=== PATIENT | female | born 1965 | race Caucasian/White ===

== ENCOUNTER 2018-01-20 11:05 | Emergency (ER) | payer OTHER ==
[2018-01-20 11:23] VITALS: BP 112/80; PULSE 65; TEMP 97.7; BMI 27.9
[2018-01-20] MEDS ORDERED: IBUPROFEN 600 MG TABLET (FP) PO ONE ×2 (11:26→11:28)
[2018-01-20] MEDS ORDERED: ACETAMINOPHEN 500 MG TABLET (FP) PO ONE (11:27)
[2018-01-20] MEDS ORDERED: ACETAMINOPHEN 500 MG TABLET (FP) ONE (11:29)
--- NOTE | 2018-01-20 11:33 | PDOC ---
History of Present Illness - General Chief Complaint: Injury Stated Complaint: RIGHT WRIST & HAND INJURY Time Seen by Provider: 01/20/18 11:13 History Source: Patient Exam Limitations: No Limitations - History of Present Illness Initial Comments: 01/20/18 11:28 Pt is a 56yo female with PMH of anxiety presenting to ED with R hand pain. 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 She also injured her wrist when she was "pushing a cart with a wooden palette and the man on top was wearing flip flops and he slipped and stopped the cart suddenly". She denies any other injuries, falls, chest pain, shortness of breath, fever, numbness, tingling. PCP: Dr. Torres Orthopedist: Dr. Garduno PMH: anxiety PSH: R hip surgery Meds: Aleeve, [place], Lexapro Allergies: PCN Social: social alcohol use. Denies tobacco, marijuana, illicit drug use Past History - Past Medical History Allergies/Adverse Reactions: Allergies Allergy/AdvReac Type Severity Reaction Status Date / Time Penicillins Allergy Unknown Verified 01/20/18 11:14 Home Medications: Ambulatory Orders Acetaminophen [Tylenol -] 1,000 mg PO Q6H #12 tablet 01/20/18 Escitalopram Oxalate [Lexapro -] 10 mg PO DAILY 01/20/18 Hydrocodone/Acetaminophen [Hydrocodone-Acetamin 5-300 mg] 1 each PO DAILY Ibuprofen [Motrin -] 600 mg PO TID #9 tablet 01/20/18 Naproxen Sodium [Aleve] 220 mg PO ONCE 01/20/18 COPD: No - Suicide/Smoking/Psychosocial Hx Smoking History: Never smoked Hx Alcohol Use: Yes (SOCIAL) Drug/Substance Use Hx: No Substance Use Type: None Review of Systems - Review of Systems Constitutional: No: Chills, Fever, Weakness HEENTM: No: Recent change in vision Respiratory: No: Shortness of Breath Cardiac (ROS): No: Chest Pain, Lightheadedness, Palpitations Musculoskeletal: Yes: See HPI, Other (R hand and wrist pain with movement. ). No: Back Pain, Gout Integumentary: Yes: Other (Abrasion to R hand) Neurological: No: Headache, Numbness, Paresthesia, Tingling *Physical Exam - Vital Signs Last Vital Signs Temp Pulse Resp BP Pulse Ox 97.7 F 65 15 112/80 97 01/20/18 11:13 01/20/18 11:13 01/20/18 11:13 01/20/18 11:13 01/20/18 11:13 - Physical Exam General Appearance: Yes: Nourished, Appropriately Dressed. No: Apparent Distress HEENT: positive: EOMI, CRESENCIO Neck: positive: Trachea midline, Supple Respiratory/Chest: positive: Lungs Clear, Normal Breath Sounds. negative: Crackles, Rales, Stridor, Wheezing Cardiovascular: positive: Regular Rhythm, Regular Rate, S1, S2. negative: Edema , JVD, Murmur Comments:: 01/20/18 11:33 radial pulses R and L 2+ Gastrointestinal/Abdominal: positive: Normal Bowel Sounds, Soft. negative: Tender, Guarding, Rebound, Tenderness Musculoskeletal: positive: Decreased Range of Motion (of R hand. ), Other (R wrist tender to palpation. R PIP tender to palpation. ). negative: Muscle Spasm Extremity: positive: Normal Capillary Refill, Normal Inspection. negative: Coldness, Swelling Integumentary: positive: Normal Color, Dry, Warm, Other (small abration to dorsal aspect of R hand. ). negative: Swelling, Ecchymosis Neurologic: positive: Fully Oriented, Alert, Normal Mood/Affect. negative: Motor Strength 5/5 (Auto Body Straightener strength decreased on R side compared to L.) Procedures - Splinting Splint Location: Right: Finger (thumb), Hand, Wrist Pre-Proc Neuro Vasc Exam: normal Hand-Made Type: fiberglass (4in) Splint Type: Yes: Thumb Spica Post-Proc Neuro Vasc Exam: unchanged from pre-exam (capillary refill <2s, full sensation and ROM of fingers) Ga Bandage: yes Sling: No ED Treatment Course - RADIOLOGY Radiology Studies Ordered: Category Date Time Status WRIST W/HAND-RIGHT* [RAD] Stat Radiology 01/20/18 11:26 Ordered Medical Decision Making - Medical Decision Making 01/20/18 11:36 Pt is a 56 yo female with PMH of anxiety presenting to ED with R hand injury obtained while at work. DDX: scaphoid fracture, wrist fracture Xray of hand and wrist: No fracture or acute process. Pt given ibuprofen 600 and tylenol 1g in ED for pain. Reported relief. Due to scaphoid tenderness, pt placed in thumb spica splint. Pt has orthopedist and will follow up within the next 5-7 days. Pt prescribed ibuprofen 600 and ES tylenol for pain control. Pt given instructions for splint care. Pt vital signs wnl, neurovascularly intact, pain controlled and ambulatory. Pt stable for d/c home with ortho follow up. Pt agrees with plan. Pt given strict return precautions and verbalized understanding. *DC/Admit/Observation/Transfer Diagnosis at time of Disposition: Injury of wrist or hand, Wrist pain, right, Hand pain, right - Discharge Dispostion Disposition: HOME Condition at time of disposition: Improved Decision to Admit order: No - Prescriptions Prescriptions: Acetaminophen [Tylenol -] 1,000 mg PO Q6H #12 tablet Ibuprofen [Motrin -] 600 mg PO TID #9 tablet - Referrals - Patient Instructions Printed Discharge Instructions: How to Take Care of Your Splint, DI for Wrist Pain Additional Instructions: You were seen here today because of an injury to your right hand and wrist you obtained yesterday at work. We did an xray of your wrist and hand to check for fractures. You do not have any fractures seen on the xray. Because you have some wrist tenderness, we placed you in a thumb spica, a type of splint for your thumb. Please keep it dry. Follow up with your orthopedist in the next 5-7 days. I have prescribed ibuprofen 600mg and Extra Strength Tylenol for you to take for pain. You can take the ibuprofen every 8 hours if needed and tylenol every 6 hours if needed. Remember to rest your right hand and keep the splint dry. And please remember to make an appointment with your orthopedist. Please come back to the ED if: your pain gets worse, if you are unable to move your fingers, if notice numbness/tingling in your hand or fingers, if your fingers become cold and pale, or if any new concerning symptom develops. Thank you. - Post Discharge Activity
--- NOTE | 2018-01-20 11:46 | PDOC ---
Attending Attestation - Resident Resident Name: Joselin Casanova - ED Attending Attestation I have performed the following: I have examined & evaluated the patient, The case was reviewed & discussed with the resident, I agree w/resident's findings & plan, Exceptions are as noted - HPI HPI: 01/20/18 11:41 56 F with no PMH presents to ED with R hand injury. Pt states that at work last night a piece of molding fell directly onto her hand. She also reports that after this initial injury, she was pushing a cart that stopped abruptly, causing her hand to hyperextend. Pt now reports pain in her wrist and hand. Denies any other injury. - Physicial Exam PE: 01/20/18 11:42 "GENERAL: Awake, alert, and fully oriented, in no acute distress. HEAD: No signs of trauma EYES: PERRLA, EOMI, sclera anicteric, conjunctiva clear ENT: Auricles normal inspection, hearing grossly normal, nares patent, oropharynx clear without exudates. Moist mucosa NECK: Nontender, no stepoffs, Normal ROM, supple, no lymphadenopathy, JVD, or masses LUNGS: Breath sounds equal, clear to auscultation bilaterally. No wheezes, and no crackles HEART: Regular rate and rhythm, normal S1 and S2, no murmurs, rubs or gallops ABDOMEN: Soft, nontender, normoactive bowel sounds. No guarding, no rebound. No masses EXTREMITIES: + R hand with distal radius tenderness, + snuffbox tenderness, no obvious deformity or edema, neurovascularly intact NEUROLOGICAL: Cranial nerves II through XII intact. 5/5 strength and sensation in all extremities, Normal speech, normal gait, normal cerebellar function SKIN: Warm, Dry, normal turgor, no rashes or lesions noted. " - Medical Decision Making 01/20/18 11:46 56 F with R hand and wrist pain after injury yesterday. + Snuffbox tenderness on exam - XR hand and wrist - Thumb spica for possible scaphoid injury - Motrin 01/20/18 12:48 XR negative Pt placed in thumb spica Instructed to f/u with ortho within 1 week for re-evaluation. Pt is well appearing, with normal vitals. Clinically stable for DC at this time. I discussed the physical exam findings, ancillary test results and final diagnoses with the patient. I answered all of the patient's questions. The patient was satisfied with the care received and felt comfortable with the discharge plan and treatment plan. The patient agrees to follow up with the primary care physician within 24-72 hours.
== END 2018-01-20 13:05 | disposition home or self-care (01) ==
LOC: EDBD 11:05 → FER 11:05
PROC: 2W3CX1Z Immobilization of Right Lower Arm using Splint (ICD-10-PCS; principal; 2018-01-20)
DX: M79.641 Pain in right hand (principal); M25.531 Pain in right wrist; S69.91XA Unspecified injury of right wrist, hand and finger(s), initial encounter; W20.1XXA Struck by object due to collapse of building, initial encounter; Y93.89 Activity, other specified; Y92.9 Unspecified place or not applicable; F41.9 Anxiety disorder, unspecified
CPT/HCPCS: 73110-TC-RT-FY; 73130-TC-RT-FY; 99282-25